=== PATIENT | female | born 1990 | race Caucasian/White ===

== ENCOUNTER 2021-10-13 16:33 | Outpatient (CLI) | payer OTHER ==
--- NOTE | 2021-10-13 22:31 | XRAY Report ---
PROCEDURE: Knee 3 View LT INDICATIONS: STRAIN OF MUSCLES AND TENDONS OF L LOWER LEG TECHNIQUE: 3 views of the left knee(s) were acquired. COMPARISON: None. FINDINGS: Bones: No fractures or dislocations. No suspicious bony lesions. Soft tissues: No joint effusion. No suspicious soft tissue calcifications. IMPRESSION: No evidence acute bony abnormality of the left knee. If clinical suspicion and/or symptoms persist, further assessment with repeat plain films or advanced imaging (e.g., CT, MRI, or bone scan) may be helpful for further assessment. Reviewed by: Danish Hillman MD on 10/13/2021 10:29 PM PST Approved by: Danish Hillman MD on 10/13/2021 10:29 PM PST Station ID: [id number]
== END 2021-10-13 23:59 | disposition home or self-care (01) ==
LOC: DI.N 16:33
PROVIDERS: ATTEND Physician Assistant Medical
DX: S86.912A Strain of unspecified muscle(s) and tendon(s) at lower leg level, left leg, initial encounter (principal)

== ENCOUNTER 2021-12-01 17:00 | Outpatient (CLI) | payer OTHER ==
--- NOTE | 2021-12-02 12:35 | XRAY Report ---
PROCEDURE: Knee 3 View RT INDICATIONS: R KNEE PAIN TECHNIQUE: 3 views of the right knee(s) were acquired. COMPARISON: None. FINDINGS: Bones: No fractures or dislocations. No suspicious bony lesions. No erosions. Soft tissues: Moderate joint effusion. No suspicious soft tissue calcifications. IMPRESSION: Moderate effusion. No visualized acute fracture or dislocation. However, occult injury c annot be excluded. Recommend short interval imaging follow-up in 7-10 days as clinically indicated fo r additional evaluation. Reviewed by: Reshma Borrero MD on 12/02/2021 12:33 PM PDT Approved by: Reshma Borrero MD on 12/02/2021 12:33 PM PDT Station ID: [id number]
== END 2021-12-01 17:01 | disposition home or self-care (01) ==
LOC: DI.N 17:00
PROVIDERS: ATTEND Family Medicine
DX: M25.461 Effusion, right knee (principal); M25.561 Pain in right knee

== ENCOUNTER 2022-05-14 16:04 | Outpatient (CLI) | payer OTHER | END 2022-05-14 23:59 | disposition home or self-care (01) | LOC: LAB.N 16:04 | PROVIDERS: ATTEND Family Medicine | DX: N39.0 Urinary tract infection, site not specified (principal) | CPT/HCPCS: 87086 ==